=== PATIENT | female | born 1950 | race African-American/Black ===

== ENCOUNTER 2024-10-04 15:56 | Inpatient (IN) | payer MEDICARE, OTHER ==
[~2024-10-04] VITALS: Ht 172.7 cm; Wt 97.5 kg
[2024-10-04 15:57] VITALS: O2SAT 95
[2024-10-04 17:43] LABS: BASOPHILS % 0.4 % (0.0-2.0); EOSINOPHILS % 0.1 % (0.0-5.0); HEMATOCRIT. 26.3 % (36.0-48.0); HEMOGLOBIN. 8.7 g/dL (12.0-16.0); LYMPHOCYTES % 11.1 % (20.0-50.0); MEAN CORPUSCULAR HEMOGLOBIN 26.7 pg (28.0-32.0); MEAN CORPUSCULAR HGB CONC 32.9 g/dL (31.0-37.0); MEAN CORPUSCULAR VOLUME 81.2 fL (81.0-99.0); MEAN PLATELET VOLUME 8.7 fl (7.4-10.4); MONOCYTES % 7.1 % (2.0-8.0); NEUTROPHILS % 81.3 % (40.0-76.0); PLATELET 324 x1000/uL (130-400); RED BLOOD CELL COUNT 3.24 mill/uL (4.2-5.4); RED CELL DISTRIBUTION WIDTH 15.8 % (11.6-14.6); WHITE BLOOD COUNT 10.7 x1000/uL (4.5-11.0)
[2024-10-04 17:49] LABS: CHLORIDE 107 mEq/L (98-107); POTASSIUM 5.9 mEq/L (3.5-5.1); SODIUM 132 mEq/L (136-145)
[2024-10-04 17:50] LABS: CALCIUM 9.4 mg/dL (8.7-10.4); CARBON DIOXIDE 17 mEq/L (21-32)
[2024-10-04] MEDS: SODIUM CHLORIDE 0.9% 1,000 ML IV ONE (17:53)
[2024-10-04 17:55] LABS: CREATININE 2.1 mg/dL (0.6-1.0); GLUCOSE 100 mg/dL (70-105); UREA NITROGEN BLOOD 55 mg/dL (9-23)
[2024-10-04 18:03] LABS: TROPONIN I HIGH SENSITIVITY 349 ng/L (3.0-34)
[2024-10-04] MEDS: CEFTRIAXONE 1GM/50ML 50 ML IV ONE (18:24)
[2024-10-04] MEDS: ASPIRIN 325MG EC TABLET PO ONE (18:30)
[2024-10-04] MEDS: AZITHROMYCIN 500MG/250ML 250 ML IV SCH (18:43)
[2024-10-04] MEDS: ENOXAPARIN 100MG/ML SYR SUBCUT ONE (20:12)
[2024-10-04 21:00] VITALS: BP 120/72; PULSE 111; RESP 20; TEMP 37.11408; O2SAT 99
[2024-10-05] VITALS (8 sets, daily range): BP systolic 107–135; BP diastolic 73–93; PULSE 107–141; RESP 2–31; TEMP 35.5584–38.1416; O2SAT 97–100
[2024-10-05 01:53] LABS: TROPONIN I HIGH SENSITIVITY 316 ng/L (3.0-34)
[2024-10-05] MEDS ORDERED: METF-414 MT (07:28)
[2024-10-05] MEDS ORDERED: VALS320T16 PO (07:31)
[2024-10-05] MEDS ORDERED: AMIT25TA9 PO (07:31)
[2024-10-05] MEDS ORDERED: SPIR25TA6 PO (07:33)
[2024-10-05] MEDS ORDERED: HYDR50TA39 PO (07:33)
[2024-10-05] MEDS ORDERED: HYDR25TA PO (07:33)
[2024-10-05] MEDS: INSULIN LISPRO 100 UNITS/ML SUBCUT SCH (08:16)
[2024-10-05] MEDS: PANTOPRAZOLE SODIUM 40 MG/VIAL IV SCH (09:37)
[2024-10-05] MEDS: ASPIRIN 81MG TABLET PO SCH (09:37)
[2024-10-05] MEDS: LOSARTAN 50 MG TABLET PO SCH (09:37)
[2024-10-05] MEDS: ENOXAPARIN 30MG/0.3ML SYR SUBCUT SCH (09:38)
[2024-10-05] MEDS: BLOOD SUGAR DIAGNOSTIC STRIP TEST SCH (09:38)
[2024-10-05] MEDS: DEXTROSE 50% WATER 50ML SYRINGE IV PRN (09:46)
[2024-10-05] MEDS ORDERED: NALOXONE HCL 0.4MG/ML VIAL IV PRN (10:15)
[2024-10-05 10:51] LABS: BASOPHILS % 0.2 % (0.0-2.0); EOSINOPHILS % 0.2 % (0.0-5.0); HEMATOCRIT. 27.5 % (36.0-48.0); HEMOGLOBIN. 8.8 g/dL (12.0-16.0); LYMPHOCYTES % 12.3 % (20.0-50.0); MEAN CORPUSCULAR HEMOGLOBIN 26.3 pg (28.0-32.0); MEAN CORPUSCULAR HGB CONC 31.9 g/dL (31.0-37.0); MEAN CORPUSCULAR VOLUME 82.6 fL (81.0-99.0); MEAN PLATELET VOLUME 8.9 fl (7.4-10.4); MONOCYTES % 5.9 % (2.0-8.0); NEUTROPHILS % 81.4 % (40.0-76.0); PLATELET 322 x1000/uL (130-400); RED BLOOD CELL COUNT 3.33 mill/uL (4.2-5.4); RED CELL DISTRIBUTION WIDTH 16.1 % (11.6-14.6); WHITE BLOOD COUNT 9.6 x1000/uL (4.5-11.0)
[2024-10-05 10:57] LABS: POTASSIUM 4.8 mEq/L (3.5-5.1)
[2024-10-05 10:59] LABS: CALCIUM 9.4 mg/dL (8.7-10.4)
[2024-10-05] MEDS: FUROSEMIDE 40MG/4ML VIAL IVP SCH (12:15)
[2024-10-05] MEDS: AMLODIPINE 5MG TABLET PO NR (12:16)
[2024-10-05 15:28] LABS: BG CARBOXYHEMOGLOBIN 0.4 % (0.5-1.5); BG DEOXYHEMOGLOBIN 0.2 % (0.0-5.0); BG FRACTION INSPIRED OXYGEN 100; BG HCO3 ACT 14.8 mmol/L (21.0-28.0); BG OXYGEN SATURATION 99.8 % (94.0-98.0); BG OXYHEMOGLOBIN 99.4 % (94.0-98.0); BG PCO2 25.8 mmHg (32.0-45.0); BG PH 7.377 (7.350-7.450); BG PO2 287.6 mmHg (83.0-108.0); BG SAMPLE SITE LEFT RADIAL; BG TOTAL HEMOGLOBIN 9.9 g/dL (12.0-16.0); BG VENT MODE MASK - NRB
[2024-10-05] MEDS: SODIUM BICARBONATE 8.4% 50MEQ/50ML SYR IV NR (16:14)
[2024-10-05] MEDS: DILTIAZEM HCL 5MG/ML 5ML VIAL IV NR (16:14)
[2024-10-05] MEDS: NITROGLYCERIN OINT 1GM/INCH UDPKT TD SCH (16:14)
[2024-10-05] MEDS: AMIODARONE 150MG/100ML D5W 100 ML IV NR (16:39)
[2024-10-05] MEDS: HYDROCODONE/ACETAMINOPHEN 5/325MG TABLET PO PRN (21:24)
[2024-10-05] MEDS ORDERED: LIDOCAINE 5% PATCH TOP SCH (22:30)
[2024-10-05] MEDS: ATORVASTATIN CALCIUM 40MG TABLET PO SCH (23:16)
[2024-10-05] MEDS: DILTIAZEM HCL 125 MG in DEXT 5% WATER 100 ML IV PRN (23:41)
[2024-10-06] VITALS (15 sets, daily range): BP systolic 99–130; BP diastolic 59–81; PULSE 103–141; RESP 12–28; TEMP 36.78072–37.503; O2SAT 93–100
[2024-10-06] MEDS: LIDOCAINE 5% PATCH TOP SCH
[2024-10-06] MEDS ORDERED: DILTIAZEM HCL 125 MG in DEXT 5% WATER 100 ML IV SCH ×2 (02:15→02:30)
[2024-10-06 05:58] LABS: TROPONIN I HIGH SENSITIVITY 216 ng/L (3.0-34)
[2024-10-06 06:26] LABS: BASOPHILS % 0.1 % (0.0-2.0); HEMATOCRIT. 27.5 % (36.0-48.0); HEMOGLOBIN. 8.8 g/dL (12.0-16.0); LYMPHOCYTES % 15.4 % (20.0-50.0); MEAN CORPUSCULAR HEMOGLOBIN 26.3 pg (28.0-32.0); MEAN CORPUSCULAR VOLUME 82.1 fL (81.0-99.0); MONOCYTES % 9.4 % (2.0-8.0); NEUTROPHILS % 75.1 % (40.0-76.0); PLATELET 306 x1000/uL (130-400); RED BLOOD CELL COUNT 3.35 mill/uL (4.2-5.4); RED CELL DISTRIBUTION WIDTH 15.9 % (11.6-14.6); WHITE BLOOD COUNT 12.5 x1000/uL (4.5-11.0)
[2024-10-06] MEDS: DILTIAZEM HCL 60MG TABLET PO NR (07:08)
[2024-10-06 08:07] LABS: POTASSIUM 5.4 mEq/L (3.5-5.1); SODIUM 132 mEq/L (136-145)
[2024-10-06 08:08] LABS: CALCIUM 9.5 mg/dL (8.7-10.4); CARBON DIOXIDE 17 mEq/L (21-32); CHLORIDE 107 mEq/L (98-107); CREATININE 1.7 mg/dL (0.6-1.0); GLUCOSE 118 mg/dL (70-105); UREA NITROGEN BLOOD 54 mg/dL (9-23)
[2024-10-06] MEDS ORDERED: LIDOCAINE 5% PATCH TOP SCH (09:00)
[2024-10-06] MEDS ORDERED: AMLODIPINE 5MG TABLET PO SCH (09:00)
[2024-10-06] MEDS: SODIUM BICARBONATE 650MG TABLET PO SCH (09:07)
[2024-10-06] MEDS: MAGNESIUM OXIDE 400MG TABLET PO SCH (09:07)
[2024-10-06] MEDS: AMIODARONE 200MG TABLET PO SCH (09:07)
[2024-10-06] MEDS: MAGNESIUM 2 G PREMIX 50 ML IV NR (09:28)
[2024-10-06] MEDS ORDERED: SODIUM POLYSTYRENE SULFONATE 15 G/60 ML BOT PO ONE (12:00)
[2024-10-06] MEDS: DILTIAZEM HCL 60MG TABLET PO SCH (13:56)
[2024-10-06] MEDS: SODIUM ZIRCONIUM CYCLOSILICATE 10GM/PACKET PO NR (13:59)
[2024-10-06] MEDS: DILTIAZEM HCL 125 MG in DEXT 5% WATER 100 ML IV SCH (22:00)
[2024-10-07] VITALS (20 sets, daily range): BP systolic 103–131; BP diastolic 61–102; PULSE 97–109; RESP 17–36; TEMP 36.72516–39.11424; O2SAT 89–98
[2024-10-07] MEDS ORDERED: LIDOCAINE HCL 1% 10 MG/ML 10ML VIAL ONE (07:18)
[2024-10-07] MEDS ORDERED: LIDOCAINE 2% 6ML GLYDO MM ONE (09:58)
[2024-10-07] MEDS ORDERED: TETRACAINE/BENZOCAINE/BUTAMBEN 20 GM SPRAY MM ONE (09:58)
[2024-10-07 10:46] LABS: BASOPHILS % 0.1 % (0.0-2.0); EOSINOPHILS % 0.5 % (0.0-5.0); HEMATOCRIT. 27.9 % (36.0-48.0); HEMOGLOBIN. 8.7 g/dL (12.0-16.0); LYMPHOCYTES % 10.6 % (20.0-50.0); MEAN CORPUSCULAR HEMOGLOBIN 25.6 pg (28.0-32.0); MEAN CORPUSCULAR HGB CONC 31.1 g/dL (31.0-37.0); MEAN CORPUSCULAR VOLUME 82.3 fL (81.0-99.0); MEAN PLATELET VOLUME 8.6 fl (7.4-10.4); MONOCYTES % 11.3 % (2.0-8.0); NEUTROPHILS % 77.5 % (40.0-76.0); PLATELET 303 x1000/uL (130-400); RED BLOOD CELL COUNT 3.39 mill/uL (4.2-5.4); RED CELL DISTRIBUTION WIDTH 16.2 % (11.6-14.6); WHITE BLOOD COUNT 14.5 x1000/uL (4.5-11.0)
[2024-10-07 10:55] LABS: POTASSIUM 5.6 mEq/L (3.5-5.1)
[2024-10-07 10:56] LABS: CALCIUM 9.6 mg/dL (8.7-10.4)
[2024-10-07] MEDS ORDERED: MIDAZOLAM HCL 2 MG/2 ML VIAL ONE (11:06)
[2024-10-07] MEDS ORDERED: FENTANYL CITRATE/PF 50MCG/ML 2ML VIAL ONE (11:06)
[2024-10-07 11:24] LABS: CREATININE 2.9 mg/dL (0.6-1.0)
[2024-10-07 16:39] LABS: BG BASE EXCESS -8.1 mmol/L (-2.0-3.0); BG CARBOXYHEMOGLOBIN 0.3 % (0.5-1.5); BG DEOXYHEMOGLOBIN 4.8 % (0.0-5.0); BG FRACTION INSPIRED OXYGEN 40; BG HCO3 ACT 16.8 mmol/L (21.0-28.0); BG OXYGEN SATURATION 95.2 % (94.0-98.0); BG OXYHEMOGLOBIN 94.9 % (94.0-98.0); BG PCO2 32.3 mmHg (32.0-45.0); BG PH 7.335 (7.350-7.450); BG PO2 81.1 mmHg (83.0-108.0); BG SAMPLE SITE RIGHT RADIAL; BG TOTAL HEMOGLOBIN 8.7 g/dL (12.0-16.0); BG VENT MODE MASK - CPAP
[2024-10-07] MEDS ORDERED: CEFEPIME 1GM IN DEXT 5% 50ML IV STA (23:45)
[2024-10-08] VITALS: BP 121/73; PULSE 108; RESP 27; TEMP 38.11416; O2SAT 97
[2024-10-08] MEDS: CEFEPIME 1GM/50ML 50 ML IV NR (00:12)
[2024-10-08] MEDS: ACETAMINOPHEN 325MG TABLET PO PRN (00:27)
[2024-10-08] MEDS: VANCOMYCIN 1.5GM/250ML IV NR (01:22)
[2024-10-08 02:00] VITALS: BP 117/65; PULSE 101; RESP 28; O2SAT 96
[2024-10-08 03:34] LABS: HEMATOCRIT. 25.1 % (36.0-48.0); HEMOGLOBIN. 7.7 g/dL (12.0-16.0); MEAN CORPUSCULAR HEMOGLOBIN 25.3 pg (28.0-32.0); MEAN CORPUSCULAR HGB CONC 30.8 g/dL (31.0-37.0); MEAN PLATELET VOLUME 9.1 fl (7.4-10.4); PLATELET 348 x1000/uL (130-400); RED BLOOD CELL COUNT 3.06 mill/uL (4.2-5.4); WHITE BLOOD COUNT 16.2 x1000/uL (4.5-11.0)
[2024-10-08 03:41] LABS: POTASSIUM 5.5 mEq/L (3.5-5.1)
[2024-10-08 03:42] LABS: CALCIUM 9.4 mg/dL (8.7-10.4)
[2024-10-08 03:47] LABS: CREATININE 3.6 mg/dL (0.6-1.0)
[2024-10-08 04:00] VITALS: BP 95/40; PULSE 94; RESP 21; TEMP 36.28068
[2024-10-08 04:08] LABS: DIFFERENTIAL COMMENT 1
[2024-10-08 06:00] VITALS: BP 100/66; PULSE 124; RESP 22; O2SAT 98
[2024-10-08] MEDS ORDERED: CEFEPIME 1GM/50ML 50 ML IV SCH (10:30)
[2024-10-08] MEDS ORDERED: VANCOMYCIN 500MG/100ML IV NR (10:30)
[2024-10-08 18:06] LABS: PLATELET ESTIMATE NORMAL
== END 2024-10-08 14:43 ==
LOC: ER 15:56 → EDBEDREQTM 19:55 → EDBEDREQ 19:55 → 5WST 20:39 → 7EST 10-05 15:04 → 5EST 10-05 15:40
PROVIDERS: ADMIT Internal Medicine; ATTEND Internal Medicine
PROC: 5A09357 Assistance with Respiratory Ventilation, Less than 24 Consecutive Hours, Continuous Positive Airway Pressure (ICD-10-PCS; 2024-10-07)
PROC: 02HV33Z Insertion of Infusion Device into Superior Vena Cava, Percutaneous Approach (ICD-10-PCS; 2024-10-07)
PROC: B548ZZA Ultrasonography of Superior Vena Cava, Guidance (ICD-10-PCS; 2024-10-07)
PROC: B245ZZ4 Ultrasonography of Left Heart, Transesophageal (ICD-10-PCS; 2024-10-07)
PROC: 5A09357 Assistance with Respiratory Ventilation, Less than 24 Consecutive Hours, Continuous Positive Airway Pressure (ICD-10-PCS; principal; 2024-10-08)
PROC: 0BH17EZ Insertion of Endotracheal Airway into Trachea, Via Natural or Artificial Opening (ICD-10-PCS; 2024-10-08)
PROC: 5A12012 Performance of Cardiac Output, Single, Manual (ICD-10-PCS; 2024-10-08)
DX: I21.4 Non-ST elevation (NSTEMI) myocardial infarction (principal); I33.0 Acute and subacute infective endocarditis; J18.9 Pneumonia, unspecified organism; C90.00 Multiple myeloma not having achieved remission; I47.10 Supraventricular tachycardia, unspecified; N17.9 Acute kidney failure, unspecified; E11.649 Type 2 diabetes mellitus with hypoglycemia without coma; I11.0 Hypertensive heart disease with heart failure; I50.9 Heart failure, unspecified; G47.30 Sleep apnea, unspecified; E87.5 Hyperkalemia; D63.8 Anemia in other chronic diseases classified elsewhere; I34.0 Nonrheumatic mitral (valve) insufficiency; I34.81 Nonrheumatic mitral (valve) annulus calcification; M81.0 Age-related osteoporosis without current pathological fracture; R29.6 Repeated falls; Z79.899 Other long term (current) drug therapy; Z91.81 History of falling
CPT/HCPCS: 36415; 36573; 36600; 71045; 80048; 80061; 82375; 82805; 82962; 83036; 83605; 83735; 83880; 84484; 85025; 86850; 86900; 93005; 93306; 93312; 94660; 99285; C1725; J0282; J0456; J0692; J0696; J1650; J1815; J1940; J2250; J2470; J3010; J3370; J3475; J3490; J7030; J7060